=== PATIENT | female | born 1960 | race Caucasian/White ===

== ENCOUNTER 2017-08-23 17:16 | Emergency (ER) | payer OTHER ==
[2017-08-23 17:49] VITALS: BP 142/85
--- NOTE | 2017-08-23 18:19 | ED ---
Skin Complaint - HPI Summary HPI Summary: 57 yr old with rash to the left side scalp for five days. This was preceeded by three days of ache in the left trapezius medially and up the back of the left side of the neck. She has a few patches along the C2/3 left side distribution that are red base with scabs that were vesicles. No fever chills , headache. - History of Current Complaint Chief Complaint: UCGeneralIllness Time Seen by Provider: 08/23/17 17:50 Stated Complaint: PAIN LEFT SIDE OF NECK/HEAD Pain Intensity: 5 - Allergy/Home Medications Allergies/Adverse Reactions: Allergies Allergy/AdvReac Type Severity Reaction Status Date / Time statins Allergy Leg Cramps Uncoded 08/23/17 17:39 Home Medications: Home Medications Aspirin EC TAB* [Ecotrin EC Low Dose 81 MG*] 1 tab DAILY 08/23/17 [History Confirmed 08/23/17] Cholecalciferol TAB* [Vitamin D TAB*] 2,000 units DAILY 08/23/17 [History Confirmed 08/23/17] Insulin Detemir (NF) [Levemir (NF)] 72 units QAM 08/23/17 [History Confirmed 11/03] Olmesartan Medoxomil [Benicar] 20 mg QAM 08/23/17 [History Confirmed 08/23/17] metFORMIN* [Glucophage 1000 MG TAB *] 1,000 mg PO BID 08/23/17 [History Confirmed 08/23/17] PMH/Surg Hx/FS Hx/Imm Hx Endocrine/Hematology History: Reports: Hx Diabetes Cardiovascular History: Reports: Hx Hypertension Infectious Disease History: No Infectious Disease History: Denies: Traveled Outside the [place] in Last 30 Days - Family History Known Family History: Positive: Unknown - Social History Alcohol Use: None Substance Use Type: Reports: None Smoking Status (MU): Never Smoked Tobacco Review of Systems Constitutional: Negative Positive: Rash All Other Systems Reviewed And Are Negative: Yes Physical Exam Triage Information Reviewed: Yes Vital Signs On Initial Exam: Initial Vitals Temp Pulse Resp BP Pulse Ox 98.9 F 85 16 142/85 99 08/23/17 17:41 08/23/17 17:41 08/23/17 17:41 08/23/17 17:41 08/23/17 17:41 Vital Signs Reviewed: Yes Appearance: Positive: Well-Appearing, No Pain Distress Skin: Positive: Other - red based patches of rash with scabs in the c2/3 distribution left side scalp, posterior neck. Eyes: Positive: EOMI ENT: Positive: Normal ENT inspection Neck: Positive: Nontender Respiratory/Lung Sounds: Positive: Clear to Auscultation, Breath Sounds Present Cardiovascular: Positive: RRR. Negative: Murmur Abdomen Description: Positive: Nontender Musculoskeletal: Positive: Normal, Strength/ROM Intact Neurological: Positive: Sensory/Motor Intact, Alert, Oriented to Person Place, Time, CN Intact II-III Psychiatric: Positive: Normal - Maldonado Coma Scale Best Eye Response: 4 - Spontaneous Best Motor Response: 6 - Obeys Commands Best Verbal Response: 5 - Oriented Coma Scale Total: 15 Diagnostics - Vital Signs Vital Signs Temp Pulse Resp BP Pulse Ox 08/23/17 17:41 98.9 F 85 16 142/85 99 - Laboratory Lab Statement: Any lab studies that have been ordered have been reviewed, and results considered in the medical decision making process. Course/Dx - Course Course Of Treatment: 57 yr old with shingles. Rx with Valtrex. - Diagnoses Provider Diagnoses: Shingles Discharge - Sign-Out/Discharge Documenting (check all that apply): Discharge/Admit/Transfer - Discharge Plan Condition: Good Disposition: HOME Prescriptions: ValACYclovir (*) [Valtrex 1 GM(*)] 1 gm PO TID #21 tab Patient Education Materials: Shingles (ED), Hypertension (ED) Referrals: Mechelle Oliveira PA [Primary Care Provider] - 1 Day - Billing Disposition and Condition Condition: GOOD Disposition: HOME
== END 2017-08-23 18:17 | disposition home or self-care (01) ==
LOC: UCCORT 17:16
DX: B02.9 Zoster without complications (principal); Z88.8 Allergy status to other drugs, medicaments and biological substances
CPT/HCPCS: 99202; G0463